=== PATIENT | female | born 2000 | race Caucasian/White ===

== ENCOUNTER 2021-02-06 10:49 | Emergency (ER) | payer OTHER ==
[~2021-02-06] VITALS: Ht 167.6 cm; Wt 54.5 kg
--- NOTE | 2021-02-06 11:14 | NUR ---
phone number for ride home before 7pm, [phone] or [phone] for mobile crisis unit
[2021-02-06] MEDS ORDERED: NO HOME MEDS (12:20)
[2021-02-06 12:28] LABS: BASOPHILS % (AUTO) 0.6 % (0-1); EOSINOPHILS % (AUTO) 0.3 % (0-6); HEMATOCRIT 37.8 % (35.0-45.0); HEMOGLOBIN 13.2 g/dl (12.0-16.0); LYMPHOCYTES # (AUTO) 1.3 X10'3 (1.1-4.8); LYMPHOCYTES % (AUTO) 18.8 % (21-51); MEAN CORPUSCULAR HEMOGLOBIN 32.8 PG (27.0-31.0); MEAN CORPUSCULAR HGB CONC 35.1 g/dL (33.0-36.5); MEAN CORPUSCULAR VOLUME 93.6 FL (78-98); MONOCYTES # (AUTO) 0.4 X10'3 (0-0.9); MONOCYTES % (AUTO) 5.6 % (2-12); NEUTROPHILS # (AUTO) 5.3 X10'3 (1.8-7.7); NEUTROPHILS % (AUTO) 74.7 % (42-75); PLATELET COUNT 239 X10'3 (140-440); RED BLOOD COUNT 4.04 X10'6 (4.20-5.60); RED CELL DISTRIBUTION WIDTH 12.5 % (11.5-14.5)
[2021-02-06 12:30] LABS: ALANINE AMINOTRANSFERASE 18 U/L (12-78); ALBUMIN 4.4 G/DL (3.4-5.0); ALBUMIN/GLOBULIN RATIO 1.2 (1.1-1.5); ALKALINE PHOSPHATASE 68 IU/L (46-116); ANION GAP 12 (8-16); ASPARTATE AMINO TRANSFERASE 12 U/L (10-37); BLOOD UREA NITROGEN 18 MG/DL (7-18); BUN/CREATININE RATIO 18.6 (6.6-38.0); CALCIUM 9.1 MG/DL (8.5-10.1); CHLORIDE 101 MMOL/L (99-107); CREATININE 0.97 MG/DL (0.40-0.90); GLUCOSE 157 MG/DL (70-104); POTASSIUM 3.4 MMOL/L (3.5-5.1); SODIUM 137 MMOL/L (135-145); TOTAL CARBON DIOXIDE 24.3 MMOL/L (24-32); eGFR 72 ML/MIN
[2021-02-06 12:32] LABS: ETHANOL < 0.010 GM/DL (0.0-0.010)
--- NOTE | 2021-02-06 12:49 | NUR ---
per lab, urine was rejected as the label was "unreadable." will attempt to get another sample at next pt void. pt aware
--- NOTE | 2021-02-06 13:01 | NUR ---
gave report to alan can in overflow. pt transported to overflow by clinical reviewer without issue.
--- NOTE | 2021-02-06 13:20 | NUR ---
Report received from Alfreda NOLASCO. Pt. transferred over safe and stable. Pt. denies any auditory or visual hallucinations; Pt. denies want to hurt herself or anyone else. Pt. placed in bed 27; Will continue to monitor.
--- NOTE | 2021-02-06 13:45 | NUR ---
Pt. stated she'd like something for anxiety; Verbal order by Dr. Frances to give 0.5mg of or ativan.
[2021-02-06] MEDS ORDERED: LORazepam 0.5 MG tablet PO PRN (14:00)
[2021-02-06 14:15] LABS: URINE HCG NEGATIVE (NEG)
[2021-02-06 14:31] LABS: URINE AMPHETAMINE SCREEN NEGATIVE (Neg); URINE BARBITUATE SCREEN NEGATIVE (Neg); URINE BENZODIAZEPINES SCREEN NEGATIVE (Neg); URINE CANNABINOID SCREEN NEGATIVE (Neg); URINE COCAINE SCREEN NEGATIVE (Neg); URINE METHADONE SCREEN NEGATIVE (Neg); URINE OPIATE SCREEN NEGATIVE (Neg); URINE PHENCYCLIDINE SCREEN NEGATIVE (Neg)
--- NOTE | 2021-02-06 14:36 | NUR ---
Trish RN sitting with patient to help with anxiety.
--- NOTE | 2021-02-06 14:40 | NUR ---
[facility] [place] [facility] faxed.
--- NOTE | 2021-02-06 17:04 | NUR ---
Pt. safe and resting in bed
--- NOTE | 2021-02-06 20:23 | NUR ---
Sister Ashley's number: [phone]
[2021-02-07 06:19] VITALS: BP 135/77
--- NOTE | 2021-02-07 07:37 | NUR ---
Patient sleeping at shift change and has not moved from left side sleeping. Respirations equal, no distress noted. All staff aware we need to collect UA for placement.
[2021-02-07] MEDS ORDERED: LORazepam 1 MG tablet PO ONE (08:45)
--- NOTE | 2021-02-07 08:58 | NUR ---
Patient c/o A/H "I am in the back ground and will be your master", patient requested prn Ativan, order given 0.5mg given per order. Patient is aware that she has been accept at [facility] and will be transported sometime today.
[2021-02-07 09:14] LABS: CLARITY,URINE CLOUDY (Clear); GLUCOSE, URINE NEGATIVE (Neg); KETONES,URINE NEGATIVE (Neg); LEUKOCYTE ESTERASE ,URINE MODERATE (Neg); NITRITES, URINE POSITIVE (Neg); OCCULT BLOOD,URINE TRACE-INTACT (Neg); PH,URINE 5.5 (4.8-8.0); PROTEIN,URINE NEGATIVE (Neg); UROBILINOGEN,URINE 0.2 E.U/dL (0.2-1.0)
[2021-02-07 09:33] LABS: COLOR,URINE DARK YELLOW (Yellow); UA COLLECTION TYPE NON-SPECIFIED
[2021-02-07 09:43] LABS: WBC,URINE 30-50 /HPF (0-4)
[2021-02-07 09:44] LABS: BACTERIA,URINE 4+ /HPF (Neg); MUCUS STRANDS MANY /LPF (Neg); RBC,URINE 0-2 /HPF (0-2); SQUAMOUS EPITHELIAL CELL,UR MANY /LPF (FEW)
--- NOTE | 2021-02-07 10:14 | NUR ---
1015 patient reading in bed, states that the Ativan helped.
--- NOTE | 2021-02-07 12:01 | NUR ---
1150 discharged via [facility],phoned charge nurse informed 0.5 mg Ativan for agitation given at 1130.
== END 2021-02-07 11:55 ==
LOC: ER 10:50
DX: R44.1 Visual hallucinations (principal); Z20.822 Contact with and (suspected) exposure to COVID-19; R44.0 Auditory hallucinations; F32.9 Major depressive disorder, single episode, unspecified; F41.9 Anxiety disorder, unspecified
CPT/HCPCS: 36415; 80053; 80305; 80320; 81001; 81025; 85025; 87635; 99285; C9803

== ENCOUNTER 2021-10-22 12:09 | Emergency (ER) | payer MEDICAID, OTHER ==
[~2021-10-22 12:09] MED LIST: NO HOME MEDS
== END 2021-10-22 14:20 | disposition left against medical advice (07) ==
LOC: ER 12:09
DX: Z00.8 Encounter for other general examination (principal); Z53.21 Procedure and treatment not carried out due to patient leaving prior to being seen by health care provider

== ENCOUNTER 2024-01-21 16:48 | Emergency (ER) | payer MEDICAID ==
[~2024-01-21] VITALS: Ht 167.6 cm; Wt 74.1 kg
[2024-01-21 17:41] VITALS: BP 160/88; PULSE 81; O2SAT 98
[2024-01-21 17:59] VITALS: RESP 18
[2024-01-21] MEDS ORDERED: ONDA-243 PO (19:20)
[2024-01-21] MEDS: acetaminophen 325mg tablet PO ONE (19:35)
[2024-01-21] MEDS: ondansetron 4mg rapidly disintigrating tab PO ONE (19:35)
[2024-01-21 19:38] VITALS: TEMP 97
== END 2024-01-21 19:40 | disposition home or self-care (01) ==
LOC: ER 16:49
DX: B34.9 Viral infection, unspecified (principal); Z20.822 Contact with and (suspected) exposure to COVID-19; R05.9 Cough, unspecified; F41.9 Anxiety disorder, unspecified; R11.0 Nausea; Z79.899 Other long term (current) drug therapy
CPT/HCPCS: 36415; 87502; 87503; 87811; 99283

== ENCOUNTER 2024-04-22 17:50 | Emergency (ER) | payer MEDICAID ==
[~2024-04-22] VITALS: Ht 170.2 cm; Wt 68.0 kg
[~2024-04-22 17:50] MED LIST changes: +ONDA-243 PO
[2024-04-22 20:40] VITALS: BP 128/74; PULSE 78; RESP 14; TEMP 98.6; O2SAT 98
== END 2024-04-22 20:43 | disposition home or self-care (01) ==
LOC: ER 17:50
DX: Z34.91 Encounter for supervision of normal pregnancy, unspecified, first trimester (principal); F32.A Depression, unspecified; F41.9 Anxiety disorder, unspecified
CPT/HCPCS: 99281

== ENCOUNTER 2024-04-25 22:33 | Emergency (ER) | payer MEDICAID ==
[~2024-04-25] VITALS: Ht 167.6 cm; Wt 69.3 kg
[2024-04-25 22:35] VITALS: BP 116/61; PULSE 78; RESP 16; O2SAT 100
[2024-04-25 23:15] LABS: BILIRUBIN,URINE NEGATIVE (Neg); CLARITY,URINE CLEAR (Clear); COLOR,URINE YELLOW (Yellow); GLUCOSE, URINE NEGATIVE (Neg); KETONES,URINE NEGATIVE (Neg); LEUKOCYTE ESTERASE ,URINE NEGATIVE (Neg); NITRITES, URINE POSITIVE (Neg); OCCULT BLOOD,URINE NEGATIVE (Neg); PROTEIN,URINE TRACE mg/dl (Neg); URINE HCG POSITIVE (NEG); UROBILINOGEN,URINE 0.2 E.U/dL (0.2-1.0)
[2024-04-25 23:24] LABS: BACTERIA,URINE 3+ /HPF (Neg); RBC,URINE NONE SEEN /HPF (0-2); SQUAMOUS EPITHELIAL CELL,UR MODERATE /LPF (FEW); UA COLLECTION TYPE CLN CATCH MIDSTREAM; WBC,URINE 50-100 /HPF (0-4)
[2024-04-25] MEDS ORDERED: CEPH-585 PO (23:41)
[2024-04-25] MEDS: cephalexin 250mg capsule PO ONE (23:56)
[2024-04-25 23:57] VITALS: TEMP 97.8
== END 2024-04-25 23:58 | disposition home or self-care (01) ==
LOC: ER 22:33
DX: N39.0 Urinary tract infection, site not specified (principal)
CPT/HCPCS: 81001; 81025; 87077; 87088; 87186; 99283

== ENCOUNTER 2024-05-27 11:33 | Emergency (ER) | payer MEDICAID ==
[~2024-05-27] VITALS: Ht 167.6 cm; Wt 59.1 kg
[~2024-05-27 11:33] MED LIST changes: +CEPH-585 PO
[2024-05-27 12:06] LABS: BILIRUBIN,URINE NEGATIVE (Neg); CLARITY,URINE CLOUDY (Clear); COLOR,URINE YELLOW (Yellow); GLUCOSE, URINE NEGATIVE (Neg); KETONES,URINE NEGATIVE (Neg); LEUKOCYTE ESTERASE ,URINE MODERATE (Neg); NITRITES, URINE POSITIVE (Neg); OCCULT BLOOD,URINE NEGATIVE (Neg); PROTEIN,URINE NEGATIVE (Neg); UROBILINOGEN,URINE 0.2 E.U/dL (0.2-1.0)
[2024-05-27 12:17] LABS: UA COLLECTION TYPE CLN CATCH MIDSTREAM
[2024-05-27 12:18] LABS: BACTERIA,URINE 4+ /HPF (Neg); RBC,URINE NONE SEEN /HPF (0-2); WBC,URINE 20-30 /HPF (0-4)
[2024-05-27 12:19] LABS: MUCUS STRANDS FEW /LPF (Neg); SQUAMOUS EPITHELIAL CELL,UR MODERATE /LPF (FEW); TRANSITIONAL EPI CELLS,URINE FEW /HPF
[2024-05-27 12:54] VITALS: BP 105/71; PULSE 69; RESP 16; TEMP 98.3; O2SAT 99
== END 2024-05-27 12:59 | disposition home or self-care (01) ==
LOC: ER 11:34
DX: Z00.8 Encounter for other general examination (principal); N39.0 Urinary tract infection, site not specified; F41.9 Anxiety disorder, unspecified; F32.A Depression, unspecified
CPT/HCPCS: 36415; 81001; 84702; 99283